=== PATIENT | male | born 2000 | race Caucasian/White ===

== ENCOUNTER → 2018-03-23 | Outpatient (CLI) | payer BC ==
--- NOTE | 2018-03-23 11:03 | XR ---
EXAMINATION TYPE: XR KUB DATE OF EXAM: 03/23/2018 10:52 AM CLINICAL HISTORY: Left-sided calculus. TECHNIQUE: Single supine KUB image of the abdomen is obtained. COMPARISON: None. FINDINGS: No definitive nephrolithiasis. Overall nonobstructive bowel gas pattern. Visualized osseous structures are intact. IMPRESSION: No definitive nephrolithiasis.
== END | disposition home or self-care (01) ==
LOC: RADXRMAIN 10:41
PROVIDERS: ATTEND Urology
DX: N20.0 Calculus of kidney (principal)
CPT/HCPCS: 74018